=== PATIENT | female | born 1945 | race Caucasian/White ===

== ENCOUNTER 2017-02-08 07:15 | Day surgery (SDC) | payer MEDICARE ==
[~2017-02-08 07:15] MED LIST: COREG25 M1 PO; ESTRADIOL0.5 M2 PO; LOSARTAN-HCTZ1 EAC4 PO; POTASSIUM CHLO10 ME2 PO
[2017-02-08 08:13] LABS: BASO % 1.1 % (0-2); BASO ABSOLUTE COUNT 0.1 tho/cmm (0.0-0.2); EOS % 1.3 % (0-7); EOSINOPHIL ABSOLUTE COUNT 0.1 tho/cmm (0.0-0.7); HCT-HEMATOCRIT 41.5 % (34.0-49.0); HGB-HEMOGLOBIN 13.9 gm/dl (12.0-15.5); LYMPH % 25.3 % (20-45); LYMPH ABSOLUTE COUNT 1.4 tho/cmm (0.8-4.5); MCH (MEAN CORPUSCULAR HGB) 29.8 pg (28.0-32.0); MCHC MEAN CORPUSCULAR HGB CONC 33.5 % (32.0-36.0); MCV (MEAN CELL VOLUME) 89.1 fl (82.0-96.0); MEAN PLATELET VOLUME 9.6 cmc (9.4-12.4); MONOCYTE ABSOLUTE COUNT 0.3 tho/cmm (0.0-1.2); NEUTROPHIL ABSOLUTE COUNT 3.7 tho/cmm (1.6-8.0); NEUTROPHIL-AUTOMATED 3.7 tho/cmm (1.6-8.0); NEUTROPHILS % 66.3 % (40-80); PLATELET COUNT 175 tho/cmm (150-450); RED BLOOD COUNT 4.66 mil/cmm (4.00-5.20); RED CELL DISTRIBUTION WIDTH 12.6 % (12.4-16.4); WHITE BLOOD COUNT 5.5 tho/cmm (4.0-10.0)
[2017-07-04] MEDS ORDERED: EXCEDRIN MIGRA1 EAC3 PO (12:21)
[2017-07-04] MEDS ORDERED: KEFLEX500 M4 PO (15:47)
[2017-07-10] MEDS ORDERED: NORCO 5-325 TA1 EACH PO (09:24)
[2017-07-10] MEDS ORDERED: POLYSPORIN OI28.3 GM TOP (09:26)
[2017-07-10] MEDS ORDERED: ZOFRAN4 M2 PO (10:49)
[2017-07-10] MEDS ORDERED: COLACE100 M1 PO (10:51)
== END 2017-02-08 12:45 ==
LOC: SRG 07:15 → SHSB 07:19
PROVIDERS: Anesthesiology
PROC: 0DBQ7ZX Excision of Anus, Via Natural or Artificial Opening, Diagnostic (ICD-10-PCS; principal; 2017-02-08)
DX: C20 Malignant neoplasm of rectum (principal); D12.8 Benign neoplasm of rectum; I10 Essential (primary) hypertension; Z79.899 Other long term (current) drug therapy; Z87.891 Personal history of nicotine dependence; Z80.0 Family history of malignant neoplasm of digestive organs; Z90.710 Acquired absence of both cervix and uterus; Z90.49 Acquired absence of other specified parts of digestive tract; Z98.51 Tubal ligation status; Z98.890 Other specified postprocedural states